=== PATIENT | male | born 1950 | race Caucasian/White ===

== ENCOUNTER 2022-02-28 09:00 | Outpatient (RCR) | payer MEDICARE, SELFPAY ==
--- NOTE | 2022-02-07 10:45 | HP.PTEVAL_ITS ---
Patient's Visit Information DAWIT MAZA is a 71 year old M referred to Physical Therapy by Dr. Donell Carlson, DO with a diagnosis of BL GH JOINT ARTHRITIS ,LEFT SHOULDER ADHESIVE CAPSULITIS. Date of Evaluation: 02/07/22 Physical Therapist: Nish Molina, PT, Cert MDT, OCS - Visit Plan Frequency: 2x /Week Duration: 4 Weeks Plan: PT INTERVENTIONS MANUAL THERAPY G-H ,PROM/AAROM,PROGRESS TO STRENGTH RTC/SCAPULAR AND ,POSTURAL EX'S - Subjective This 71 y/o male presents to physical therapy with bilateral shoulder pain for ~ 2 years. Patient noticed pain worse in right shoulder November and last year unable to raise left shoulder but did did get better. Seen DR Carlson did x-rays showed OA and did cortisone which helped pain. Then recommended PT. pain located global generally . 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 Patient also has h/o cortisone injection . Aggravating lifting overhead ,raising arm OH ,work demands ,reaching behind back . Alleviating factors cortisone injections ,rest. Pain is described as ache but sharp pain prior to injection. Pain affects sleeping. 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 SOCIAL: . VOCATION: retired - Pain Right Shoulder Pain Intensity (Out of 10): 2 Pain Intensity Range: 10 Left Shoulder Pain Intensity (Out of 10): 1 Pain Intensity Range: 10 - Objective POSTURE: mild forward posture ,rounded shoulders. PALPATION: unremarkable. NEURO: denies paresthesia/tingling ,reflexes C5-6-7 1/3. AROM SHOULDER BILATERAL: flexion 100 degrees ,abduction 90 ,ER 70 degrees ,IR pelvis lateral. G-H FUNCTION: < 1:1 ratio. G-H JOINT CAPSULE : mod tight. PROM: shoulder flexion 110 ,abduction in scapation 115 degrees. MMT: RTC 4/5 ,DELTOID 4-/5 - Special Tests R Shoulder Drop Sign - IS Test: Negative R Shoulder Empty Can - SS: Negative R Shoulder Neer - Impingement: Positive R Shoulder Cortes Edvin - Impingement: Positive R Shoulder Shrug Sign - OA/Adhesive Capsulitis: Positive L Shoulder Drop Sign - IS Test: Negative L Shoulder Empty Can - SS: Negative L Shoulder Neer - Impingement: Positive L Shoulder Cortes Edvin - Impingement: Positive L Shoulder Shrug Sign - OA/Adhesive Capsulitis: Positive - Balance/Special Test Scores Quick DASH Score: 38.6350 - Goals Goal 1:: Patient to be I with HEP for shoulder Goal Time Frame: 4-6 Weeks Goal 2:: Patient to demonstrate 50% improvement with improved function along with decrease pain. 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 Goal Time Frame: 4-6 Weeks Goal 5:: Patient to improve quick dash by 5 points or > to improve function and QOL Goal Time Frame: 4-6 Weeks - Rehabilitation Potential Physical Therapy Diagnosis: Patient has bilateral shoulder pain with adhesive capsulitis from OA with poor ROM ,weakness impairs ADL's ,housework and farm work tasks thus benefit from skilled PT Rehabilitation Potential: Good - Anticipated Interventions Patient/Client Instruction: Educate patient on: Condition, Plan of Care For the Purpose of:: To decrease pain, To increase ROM, To improve muscle performance and motor function, To improve ability to perform ADL's, To increase tolerance to activity/condition/position, To improve ability of physical actions for home/community/work/leisure, To improve health of tissue, To decrease soft tissue restriction, To increase flexibility/ROM, To prevent re-injury Therapeutic Exercise to Include: Strength training, Postural training, Flexibilty training, Passive ROM, Active ROM, Scapular Strength/Stabilization Comment: RTC For the Purpose of:: To decrease pain, To increase ROM, To improve muscle performance and motor function, To improve ability to perform ADL's, To increase tolerance to activity/condition/position, To improve performance and independence with ADL's, To improve ability of physical actions for home/community/work/leisure, To improve health of tissue, To decrease soft tissue restriction, To increase flexibility/ROM, To prevent re-injury, To improve tolerance to ADL's Comment: G-H For the Purpose of:: To increase ROM, To improve nutrient delivery to tissue, To increase oxygenation perfusion, To improve health of tissue, To decrease soft tissue restriction, To increase flexibility/ROM Thank you for the opportunity to evaluate your patient. For Medicare and Medicare HMO plans, please review the plan of care and approve it. It will need to be FAXED BACK to us at [phone] for Medicare purposes. For Medicare only, by signing this I certify the plan of care. Please let me know if there are questions or concerns regarding this plan of c are. Physician Signature: Date:
--- NOTE | 2022-02-28 09:59 | HP.PTDCSUM ---
It has been my pleasure to treat DAWIT MAZA referred by Dr. Donell Carlson DO, with the diagnosis of BL GH JOINT ARTHRITIS ,LEFT SHOULDER ADHESIVE CAPSULITIS for a total of 6 visit(s). Discharge Date: 02/28/22 Please see the following information for a summary of their discharge status. Subjective: Doing good no pain Right Shoulder Pain Intensity (Out of 10): 0 Left Shoulder Pain Intensity (Out of 10): 0 % Improvement: 75 Objective/Function: POSTURE: rounded shoulders head forward. AROM: shoulder flexion 130 right ,left 140 degrees ,abd 130 degrees in scapation. MMT: 4/5 RTC, deltoid 4-/5 Goal 1:: Patient to be I with HEP for shoulder Goal Progress: Goal Met Goal 2:: Patient to demonstrate 50% improvement with improved function along with decrease pain. 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 Thank you for the referral of this patient. Sincerely, Nish Molina, PT, Cert MDT, OCS Balance/Gait/Functional tests - Balance/Special Test Scores Quick DASH Score: 11.3625
== END 2022-02-28 19:00 | disposition home or self-care (01) ==
LOC: PT 09:00
PROVIDERS: PCP Family Medicine; Referring Provider Orthopaedic Surgery; Visit Provider Orthopaedic Surgery
DX: M19.011 Primary osteoarthritis, right shoulder (principal); M19.012 Primary osteoarthritis, left shoulder; M75.02 Adhesive capsulitis of left shoulder
CPT/HCPCS: 97110; 97162

== ENCOUNTER 2022-06-03 11:32 | Emergency (ER) | payer MEDICARE, SELFPAY ==
[2022-06-03 11:35] VITALS: BP 190/92; PULSE 69; RESP 17; TEMP 36.1; O2SAT 97; BMI 32.4
--- NOTE | 2022-06-03 11:37 | VDLE_ITS ---
Reason For Study: Pain RIGHT CFV is compressible, spontaneous, phasic, competent and demonstrates normal augmentation. FV is compressible, spontaneous, phasic, competent and demonstrates normal augmentation. POP V is compressible, spontaneous, phasic, competent and demonstrates normal augmentation. T/P Trunk is compressible. PTV is compressible. RT PerV is compressible. Acute superficial vein thrombosis is noted in the right GSV from prox calf to ankle. Procedure This is a venous duplex using B-mode, color flow and spectral Doppler. Exam performed portable in ED. A preliminary report was called and/or faxed to RN and Dr. Ames. VL/Venous Duplex US, Unilateral Interpretation Summary There is no evidence of right lower extremity deep vein thrombosis. Superficial thrombophlebitis right great saphenous vein from the proximal calf to the ankle noted. Ordering Physician: Rajni Ames Referring Physician: Palak Varghese Performed By: Deloris Espana RVT
--- NOTE | 2022-06-03 12:35 | EDS_ITS ---
HPI History of Present Illness Chief Complaint: Lower Extremity Injury Informant: patient Narrative Narrative: Patient is a 72-year-old male with history of arthritis, hypertension and diabetes mellitus presenting with worsening right ankle pain. He saw his prima care doctor and had outpatient uric acid and D-dimer lab ordered. His D- dimer was significantly elevated he was sent to the ER for DVT study. Patient denies any history of DVTs. Denies any trauma to the area. Notes a week ago he thought he had Planter fasciitis and bought insoles. 3 days ago he had worsening pain in his ankle which has persisted which is what brought him in. Feels that his ankle swollen. Denies any chest pain, shortness of breath or difficulty breathing. No other complaints at this time. [facility] Medical History (Updated 06/03/22 @ 14:[address] Rajni Ames, ) History of fracture of humerus Home Medications fenofibrate 160 mg tablet tablet PO 02/03/22 [History Last Taken Unknown] glimepiride 2 mg tablet tablet PO 02/03/22 [History Last Taken Unknown] hydrochlorothiazide 25 mg tablet 25 mg PO DAILY 02/03/22 [History Last Taken Unknown] metoprolol tartrate 25 mg tablet 25 tablet PO DAILY 02/03/22 [History Last Taken Unknown] pioglitazone 30 mg tablet 30 tablet PO 02/03/22 [History Last Taken Unknown] tamsulosin 0.4 mg capsule cap PO 02/03/22 [History Last Taken Unknown] apixaban 5 mg (74 tabs) tablets in a dose pack (Eliquis DVT-PE Treat 30D Start) 5 mg PO BID #74 tabs 06/03/22 [Rx Last Taken Unknown] Allergy/AdvReac Type Severity Reaction Status Date / Time No Known Allergies Allergy Unverified 06/03/22 11:33 Family History (Updated 02/03/22 @ 08:37 by Blaire Bardales) Father Myocardial infarction Social History (Updated 02/03/22 @ 08:37 by Blarie Bardales) Smoking Status: Never smoker alcohol intake: never ROS ROS ED Constitutional Constitutional ED: Denies chills or fever(s) Eyes Eyes: Denies change in vision ENT ENT ED: Denies sore throat Cardiovascular Cardiovascular: Denies chest pain Respiratory/Chest Respiratory/Chest: Denies cough Gastrointestinal Gastrointestinal: Denies abdominal pain or nausea Musculoskeletal Musculoskeletal: Reports other Details: right ankle pain Integumentary Denies rash Neurologic Neurologic: Denies headache(s), paresthesias or weakness Psychiatric Psychiatric: Denies anxiety Hematologic/Lymphatic Hematologic/Lymphatic: Denies easy bleeding or easy bruising EXAM Physical Exam Const Vital Signs: 06/03/22 11:35 06/03/22 14:54 Temperature 96.9 F L Temperature Source Temporal Pulse Rate 69 57 L Respiratory Rate 17 18 Blood Pressure 190/92 H 160/65 H Blood Pressure Mean 124 Pulse Ox 97 98 Oxygen Delivery Method Room Air Positive well nourished and well developed General Appearance ED: well developed and NAD HEENT Reports moist mucous membranes Eyes PERRL Neck supple Chest Wall inspection of chest normal Resp normal respiratory effort and no retractions Cardio regular rate, regular rhythm and no murmurs Cardio Narrative: 2+ DP pulses GI non-distended Back/Spine no CVA tenderness Extremity full ROM Extremity Narrative: Mild edema and tenderness to palpation of the medial distal right calf/proximal ankle Neuro oriented x3, moves all extremities and no sensory deficits noted Psych mental status grossly normal Skin Lesions: no lesions Rashes: no rashes MDM MDM MDM Narrative Medical decision making narrative: Patient is evaluated for elevated D-dimer outpatient as well as 3 days of worsening right ankle pain. Patient has significant superficial thrombophlebitis as reported by semiconductor development technician. Because of the extensive nature of it he will be started on anticoagulation. He is also given Navneet wrap. He is started on Eliquis due to lower creatinine clearance. Is given first dose in the ER. Counseled on risk and benefits of anticoagulation as well as signs of bleeding. Patient denies any history of GI bleeding. Case is discussed with patient's primary care doctor who has a follow-up appointment the patient on Sunday. Lab Data Attestation: I reviewed the patient's lab results. Labs: Laboratory Results - last 24 hr 06/03/22 06/03/22 06/03/22 12:50 12:50 12:50 WBC Cancelled Corrected WBC Cancelled RBC Cancelled Hgb Cancelled Hct Cancelled MCV Cancelled MCH Cancelled MCHC Cancelled RDW Std Deviation Cancelled RDW Coeff of Jenny Cancelled Plt Count Cancelled MPV Cancelled Immature Gran % (Auto) Cancelled Neut % (Auto) Cancelled Lymph % (Auto) Cancelled [place] % (Auto) Cancelled Eos % (Auto) Cancelled Baso % (Auto) Cancelled Absolute Neuts (auto) Cancelled Absolute Lymphs (auto) Cancelled Total Counted Cancelled Neutrophils % (Manual) Cancelled Band Neutrophils % Cancelled Lymphocytes % (Manual) Cancelled Monocytes % (Manual) Cancelled Eosinophils % (Manual) Cancelled Basophils % (Manual) Cancelled Metamyelocytes % Cancelled Myelocytes % Cancelled Promyelocytes % Cancelled Blast Cells % Cancelled Plasma Cell % (Manual) Cancelled Other Cells % Cancelled Nucleated RBC % Cancelled Nucleated RBCs/100 WBC Cancelled Differential Comment Cancelled Diff Path Review Cancelled Hypersegmented Neuts Cancelled Atypical Lymphocytes Cancelled Reactive Lymphocytes Cancelled Smudge Cells Cancelled Toxic Granulation Cancelled Toxic Vacuolation Cancelled Dohle Bodies Cancelled Stephanie Rods Cancelled Platelet Estimate Cancelled Plt Morphology Comment Cancelled RBC Morphology Cancelled Polychromasia Cancelled Hypochromasia Cancelled Poikilocytosis Cancelled Basophilic Stippling Cancelled Anisocytosis Cancelled Microcytosis Cancelled Macrocytosis Cancelled Spherocytes Cancelled Sickle Cells Cancelled Target Cells Cancelled Tear Drop Cells Cancelled Ovalocytes Cancelled Stomatocytes Cancelled Vasquez-[place] Bodies Cancelled Stephen Cells Cancelled Bite Cells Cancelled Crenated Cell Cancelled Acanthocytes (Spur) Cancelled Rouleaux Cancelled Schistocytes Cancelled PT 13.2 INR 1.0 Sodium 137 Potassium 4.4 Chloride 106 Carbon Dioxide 23.0 Anion Gap 8 BUN 30 H Creatinine 1.52 H Estim Creat Clear Calc 42.50 Est GFR (MDRD) Af Amer 58 L Est GFR (MDRD) Non-Af 48 L BUN/Creatinine Ratio 19.7 Glucose 311 H Calcium 9.1 06/03/22 13:12 WBC 7.0 Corrected WBC RBC 3.63 L Hgb 11.2 L Hct 35.2 L MCV 97.0 H MCH 30.9 MCHC 31.8 L RDW Std Deviation 48.2 H RDW Coeff of Jenny 13.4 Plt Count 196 MPV 10.3 Immature Gran % (Auto) 0.400 Neut % (Auto) 72.4 H Lymph % (Auto) 16.9 L [place] % (Auto) 7.0 Eos % (Auto) 2.7 Baso % (Auto) 0.6 Absolute Neuts (auto) 5.1 Absolute Lymphs (auto) 1.18 Total Counted Neutrophils % (Manual) Band Neutrophils % Lymphocytes % (Manual) Monocytes % (Manual) Eosinophils % (Manual) Basophils % (Manual) Metamyelocytes % Myelocytes % Promyelocytes % Blast Cells % Plasma Cell % (Manual) Other Cells % Nucleated RBC % 0 Nucleated RBCs/100 WBC Differential Comment Diff Path Review Hypersegmented Neuts Atypical Lymphocytes Reactive Lymphocytes Smudge Cells Toxic Granulation Toxic Vacuolation Dohle Bodies Stephanie Rods Platelet Estimate Plt Morphology Comment RBC Morphology Polychromasia Hypochromasia Poikilocytosis Basophilic Stippling Anisocytosis Microcytosis Macrocytosis Spherocytes Sickle Cells Target Cells Tear Drop Cells Ovalocytes Stomatocytes Vasquez-[place] Bodies [place] Cells Bite Cells Crenated Cell Acanthocytes (Spur) Rouleaux Schistocytes PT INR Sodium Potassium Chloride Carbon Dioxide Anion Gap BUN Creatinine Estim Creat Clear Calc Est GFR (MDRD) Af Amer Est GFR (MDRD) Non-Af BUN/Creatinine Ratio Glucose Calcium Discharge Plan Triage Chief Complaint: Lower Extremity Injury ED Provider: Rajni Ames Dx/Rx/DC Orders Clinical Impression: Superficial thrombophlebitis of right leg, Acute right ankle pain, Elevated serum creatinine Instructions: Apixaban Oral tablet, ED Thrombophlebitis, Superficial Prescriptions: New Eliquis DVT-PE Treat 30D Start 5 mg (74 tabs) tablets,dose pack 5 mg PO BID Qty: 74 0RF No Action fenofibrate 160 mg tablet PO tamsulosin 0.4 mg capsule PO pioglitazone 30 mg tablet 30 tablet PO metoprolol tartrate 25 mg tablet 25 tablet PO DAILY glimepiride 2 mg tablet PO hydrochlorothiazide 25 mg tablet 25 mg PO DAILY Primary Care Provider: Palak Varghese Referrals: Adolfo Olson MD [Med Staff - Active Staff] - As Needed Palak Varghese DO [Primary Care Provider] - Activity Restrictions/Additional Instructions: Mildly anemic today with a hemoglobin of 11.2. Your creatinine today is 1.52. You have a fairly large superficial clotIn your right leg which we will start blood thinners for. Take Tylenol as needed for pain. Wear Navneet wrap for compression or compression stockings. Disposition Disposition: Home, Self Care Discharge Date/Time: 06/03/22 14:59
[2022-06-03 13:12] LABS: Anion Gap 8 (5-15); BUN 30 mg/dL (7-18); BUN/Creat Ratio 19.7 RATIO (10-20); Calcium,Total 9.1 mg/dL (8.5-10.1); Chloride 106 mmol/L (98-107); Creatinine, Serum 1.52 mg/dL (0.70-1.30); EST Glomerular Filtration Rate 48 mL/min (>60); Est Glom Filt Rate - Afr Amer 58 mL/min (>60); Glucose 311 mg/dL (74-106); Potassium 4.4 mmol/L (3.5-5.1); Sodium Level 137 mmol/L (136-145)
[2022-06-03 13:13] LABS: Prothrombin Time (Protime)PT. 13.2 SECONDS (11.7-14.9)
[2022-06-03 13:17] LABS: Absolute Lymphocyte Count 1.18 X10^3/uL (0.83-4.51); Absolute Neutrophil Count 5.1 X10^3/uL (2.0-7.7); Basophil# 0.04 X10^3/uL; Basophil% 0.6 % (0-1); Eosinophil# 0.19 X10^3/uL; Eosinophils% 2.7 % (0-5); Hematocrit 35.2 % (40-54); Hemoglobin 11.2 g/dL (13.0-16.5); Lymphocyte # 1.18 X10^3/ul (0.83-4.51); Lymphocyte % 16.9 % (19-41); Mean Corp Hgb Conc 31.8 g/dL (32-36); Mean Corpuscular Hgb 30.9 pg (27.0-32.0); Mean Platelet Vol. 10.3 fl (6.2-12.0); Monocyte# 0.49 X10^3/uL; NRBC Flagged by Analyzer 0 % (0-5); Neutrophil # 5.07 X10^3/uL (2.7-7.7); Neutrophil % 72.4 % (47-70); Platelet Count 196 K/mm3 (150-450); RBC Distribution Width CV 13.4 % (11.6-14.6); RBC Distribution Width SD 48.2 fl (35.1-43.9); Red Blood Count 3.63 M/mm3 (4.6-6.2)
[2022-06-03] MEDS: APIXABAN 5 MG TABLET 10 MG PO (14:53)
[2022-06-03 14:54] VITALS: BP 160/65; PULSE 57; RESP 18; O2SAT 98
== END 2022-06-03 14:59 | disposition home or self-care (01) ==
PROVIDERS: Emergency Provider Emergency Medicine; PCP Family Medicine; Visit Provider Emergency Medicine
DX: I80.01 Phlebitis and thrombophlebitis of superficial vessels of right lower extremity (principal); E11.9 Type 2 diabetes mellitus without complications; I10 Essential (primary) hypertension; R79.89 Other specified abnormal findings of blood chemistry; Z79.84 Long term (current) use of oral hypoglycemic drugs; Z79.899 Other long term (current) drug therapy
CPT/HCPCS: 80048; 85025; 85610; 93971; 99283